=== PATIENT | male | born 1930 | race African-American/Black ===

== ENCOUNTER 2017-03-02 17:57 | Inpatient (IN) | payer OTHER, MEDICARE ==
[2017-03-02] VITALS (9 sets, daily range): BP systolic 81–140; BP diastolic 53–103
[~2017-03-02] VITALS: Ht 175.3 cm; Wt 75.0 kg
--- NOTE | ~2017-03-02 | 2DMMODE ---
[facility] [address] [place] [place] [address] 2 D/M-MODE ECHOCARDIOGRAM Name: DELIARAMYA Room #: 215-P ADM IN M.R.#: [id number] Admission: 03/02/17 Attend Phys: Danny Whitaker Discharge: Date of : [birth year] Date of Service: 03/03/17 1227 Report #: [id number] THIS REPORT FOR: //name// APPROVED REPORT Study performed: 03/03/2017 09:31:46 EXAM: Comprehensive 2D, Doppler, and color-flow Echocardiogram Patient Location: Bedside Room #: 215 Status: routine Other Information Study Quality: Good Indications COPD Atrial Fibrillation Dyspnea 2D Dimensions RVDd: 40.60 mm LVEF(%): 55.32 (>50%) IVSd: 16.97 (7-11mm) LVOT Diam: 24.14 (18-24mm) LVDd: 33.55 mm PWd: 15.78 (7-11mm) Ascending Ao: 33.85 (22-36mm) LVDs: 24.17 (25-40mm) Aortic Root: 32.81 mm IVC: 23.00 mm Willams's LVEF: 55.32 % Volumes Left Atrial Volume (Systole) Single Plane 4CH: 95.95 mL Single Plane 2CH: 71.44 mL LA ESV Index: 49.00 mL/m2 Aortic Valve AoV Peak Giuseppe.: 1.31 m/s AO Peak Gr.: 6.90 mmHg LVOT Max P.68 mmHg LVOT Max V: 0.82 m/s WALDO Vmax: 2.85 cm2 Mitral Valve MV Decel. Time: 192.02 ms MV E Max Giuseppe.: 0.93 m/s IVRT: 95.73 ms [facility] [address] [place] [address] 2 D/M-MODE ECHOCARDIOGRAM Name: RAMYA LIN Room #: 215-[facility] IN ..#: [id number] Admission: 03/02/17 Attend Phys: Danny Whitaker Discharge: Date of : [birth year] Date of Service: 03/03/17 1227 Report #: [id number] Pulmonary Valve PV Peak Giuseppe.: 0.82 m/s PV Peak Gr.: 2.73 mmHg Tricuspid Valve TR Peak Giuseppe.: 2.98 m/s RAP Estimate: 10.00 mmHg TR Peak Gr.: 35.73 mmHg PA Pressure: 46.00 mmHg Left Ventricle The left ventricle is normal size. There is normal LV segmental wall motion. Moderate concentric left ventricular hypertrophy. The left ventricular systolic function is normal. The left ventricular ejection fraction is within the normal range. LVEF is 50-55%. This study is not technically sufficient to allow evaluation of the LV diastolic function due to atrial fibrillation. Right Ventricle Right ventricle is at the upper limits of normal. The right ventricular systolic function is normal. Atria Left atrium is dilated. Right atrium is dilated. Aortic Valve Aortic valve is calcified. No aortic regurgitation is present. There is no aortic valvular stenosis. Mitral Valve The mitral valve is normal in structure. Mild mitral regurgitation. No evidence of mitral valve stenosis. Tricuspid Valve The tricuspid valve is normal in structure. There is mild tricuspid regurgitation. The right atrial pressure is estimated at 10 mmHg. There is moderate pulmonary hypertension. Pulmonic Valve The pulmonary valve is normal in structure. Great Vessels The aortic root is normal in size. IVC is dilated and collapses <50% with inspiration. Pericardium There is no pericardial effusion. [facility] [address] [place] [address] 2 D/M-MODE ECHOCARDIOGRAM Name: RAMYA LIN Room #: 215-P [facility] IN .R.#: [id number] Admission: 03/02/17 Attend Phys: Danny Whitaker Discharge: Date of : [birth year] Date of Service: 03/03/17 1227 Report #: [id number] <Conclusion> The left ventricular systolic function is normal. LVEF is 50-55%. Normal LV segmental wall motion. Left atrium is dilated. Aortic valve is calcified. No aortic regurgitation or stenosis The mitral valve is normal in structure. Mild mitral regurgitation. Pulmonary artery pressure of 40mmHg There is no pericardial effusion. <ELECTRONICALLY SIGNED> By: Thien Adams MD, [facility] 03/03/17 1227 1227 122 Thien Adams MD, [facility] /INF
--- NOTE | ~2017-03-02 | EKG ---
[address] [place] [address] ELECTROCARDIOGRAM REPORT Name: RAMYA LIN Room #: 215-P ADM IN M.R.#: [id number] Admission: 03/02/17 Attend Phys: Daryl Williamson Discharge: Date of : [birth year] Report #: [id number] THIS REPORT FOR: //name// 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 03/03/17 0926 1804 1804 Thien Adams MD, [facility] /EPI
[2017-03-02 18:30] LABS: HEMATOCRIT 42.4 % (42.0-52.0); HEMOGLOBIN 14.1 gm/dL (14.0-18.0); MCH 28.4 pg (26.0-34.0); MCHC 33.2 g/dL (28.0-37.0); MCV 85.6 fL (80.0-100.0); RBC 4.95 mil/uL (4.50-6.00); RDW 16.3 % (10.5-14.5); WBC 6.5 thou/uL (4.0-11.0)
[2017-03-02 18:40] LABS: ANION GAP 8 mmol/L (7-16); BUN 13 mg/dL (7-18); CALCIUM 9.4 mg/dL (8.5-10.1); CHLORIDE 100 mmol/L (98-107); CO2 29 mmol/L (21-32); CREATININE 0.9 mg/dL (0.7-1.3); GLUCOSE 123 mg/dL (74-106); POTASSIUM 3.6 mmol/L (3.5-5.1); SODIUM 137 mmol/L (136-145)
[2017-03-02 18:46] LABS: ALBUMIN 3.7 g/dL (3.4-5.0); ALKALINE PHOSPHATASE 79 U/L (46-116); SGOT 31 U/L (15-37); SGPT 17 U/L (30-65); TOTAL BILIRUBIN 0.5 mg/dL (<0.1-1.0); TOTAL PROTEIN 9.9 g/dL (6.4-8.2); TROPONIN-I < 0.04 ng/mL (<0.04-0.07)
[2017-03-02 19:05] LABS: NT-PRO BRAIN NAT PEPTIDE 325 pg/mL (<300)
[2017-03-02] MEDS ORDERED: LISINOPRIL10 MG (19:36)
[2017-03-02] MEDS ORDERED: PLAVIX 75 MG TA75 M1 PO (19:37)
[2017-03-02] MEDS ORDERED: ASPIRIN325 PO (19:37)
[2017-03-02] MEDS ORDERED: LIPITOR10 MG PO (19:38)
[2017-03-02] MEDS ORDERED: METOPROLOL (19:39)
[2017-03-02] MEDS ORDERED: COZAAR 25 MG TA25 M1 PO (20:54)
[2017-03-02] MEDS ORDERED: TOPROL XL25 MG PO (22:41)
[2017-03-02] MEDS ORDERED: AMLODIPINE BESY10 MG PO (22:41)
[2017-03-03 03:35] VITALS: BP 102/72
[2017-03-03 08:48] VITALS: BP 123/84
[2017-03-03 12:10] VITALS: BP 119/88
[2017-03-03] MEDS ORDERED: ACCUNEB SO1.25 MG/1 INH (12:15)
[2017-03-03 17:26] VITALS: BP 145/78
[2017-03-03 17:31] VITALS: BP 146/89
[2017-03-03 20:37] VITALS: BP 148/86
[2017-03-04 09:16] VITALS: BP 97/70
[2017-03-04] MEDS ORDERED: ADULT LOW DOSE81 MG PO (09:49)
[2017-03-04] MEDS ORDERED: PACERONE 200 M200 M1 PO (09:50)
[2017-03-04 13:12] VITALS: BP 105/65
[2017-03-04 13:37] VITALS: BP 105/65
== END 2017-03-04 15:28 | disposition home or self-care (01) | DRG 310 ==
LOC: ER 17:57 → EDBD 19:42 → 2N 19:42 → EROBS 19:42 → 2N 20:33
PROVIDERS: Emergency Medicine
DX: I48.0 Paroxysmal atrial fibrillation (principal); J44.9 Chronic obstructive pulmonary disease, unspecified; G62.9 Polyneuropathy, unspecified; I10 Essential (primary) hypertension; I65.29 Occlusion and stenosis of unspecified carotid artery; J84.10 Pulmonary fibrosis, unspecified; F17.210 Nicotine dependence, cigarettes, uncomplicated; I25.10 Atherosclerotic heart disease of native coronary artery without angina pectoris; Z79.899 Other long term (current) drug therapy; Z79.82 Long term (current) use of aspirin; Z87.442 Personal history of urinary calculi; Z85.51 Personal history of malignant neoplasm of bladder; Z98.62 Peripheral vascular angioplasty status; Z92.3 Personal history of irradiation
CPT/HCPCS: 10081

== ENCOUNTER → 2018-01-06 | Outpatient (CLI) | payer OTHER, MEDICARE ==
[~2018-01-06] MED LIST: ACCUNEB SO1.25 MG/1 INH; ADULT LOW DOSE81 MG PO; AMLODIPINE BESY10 MG; AMLODIPINE BESY10 MG PO; ASPIRIN325 PO; COZAAR 25 MG TA25 M1; COZAAR 25 MG TA25 M1 PO; LIPITOR10 MG PO; LISINOPRIL10 MG; METOPROLOL; PACERONE 200 M200 M1 PO; PLAVIX 75 MG TA75 M1; PLAVIX 75 MG TA75 M1 PO; TOPROL XL25 MG; TOPROL XL25 MG PO
== END ==
LOC: HYPER 11:39
DX: N30.41 Irradiation cystitis with hematuria (principal); I10 Essential (primary) hypertension; J44.9 Chronic obstructive pulmonary disease, unspecified; R06.02 Shortness of breath; G62.9 Polyneuropathy, unspecified; I48.91 Unspecified atrial fibrillation; Z85.51 Personal history of malignant neoplasm of bladder

== ENCOUNTER → 2018-01-06 | Outpatient (CLI) | payer OTHER, MEDICARE ==
[~2018-01-06] VITALS: Ht 175.3 cm; Wt 77.1 kg
[2018-01-06 10:13] VITALS: BP 128/78
[2018-01-06 12:39] LABS: ABSOLUTE NEUTROPHILS 6.8 thou/uL (1.4-8.2); BASOPHILS 0.8 % (0.0-2.0); EOSINOPHILS 0.8 % (0.0-3.0); HEMATOCRIT 34.9 % (42.0-52.0); HEMOGLOBIN 11.1 gm/dL (14.0-18.0); LYMPHOCYTES 12.1 % (24.0-44.0); MCH 25.4 pg (26.0-34.0); MCHC 31.7 g/dL (28.0-37.0); MCV 80.1 fL (80.0-100.0); MONOCYTES 5.5 % (1.0-8.0); PLATELET COUNT 308 thou/uL (150-400); POLYS 80.8 % (36.0-66.0); RBC 4.36 mil/uL (4.50-6.00); RDW 17.9 % (10.5-14.5); WBC 8.4 thou/uL (4.0-11.0)
[2018-01-06 12:55] LABS: ALBUMIN 3.6 g/dL (3.4-5.0); CALCIUM 9.2 mg/dL (8.5-10.1); CREATININE 0.7 mg/dL (0.7-1.3); POTASSIUM 3.6 mmol/L (3.5-5.1); TOTAL BILIRUBIN 0.7 mg/dL (<0.1-1.0); TOTAL PROTEIN 8.9 g/dL (6.4-8.2)
[2018-01-06 12:58] LABS: URINE BILIRUBIN NEGATIVE (Negative); URINE BLOOD 2+ (Negative); URINE CLARITY CLOUDY; URINE COLOR YELLOW; URINE GLUCOSE-RANDOM* NEGATIVE (Negative); URINE KETONES NEGATIVE (Negative); URINE PROTEIN (DIPSTICK) 1+ (Negative)
[2018-01-06 12:59] LABS: URINE LEUKOCYTES-REFLEX 2+ (Negative); URINE NITRITE-REFLEX POSITIVE (Negative)
[2018-01-06 13:21] LABS: TSH 1.651 uIU/mL (0.358-3.740)
[2018-01-06 13:21] LABS: BACTERIA >30 Many /HPF (None Seen); SQUAMOUS 0-3 Few /LPF (0-3)
[2018-01-06 13:22] LABS: CASTS None Seen /LPF (None Seen); URINE WBC >25 Many /HPF (0-5)
[2018-01-06 13:23] LABS: AMORPHOUS PHOSPHATES Moderate /LPF (None Seen)
[2018-01-06 13:25] LABS: BACTERIA-REFLEX >30 Many /HPF (None Seen); URINE WBC-REFLEX >25 Many /HPF (0-5)
== END ==
LOC: SEN 09:08
PROVIDERS: Internal Medicine Geriatric Medicine
DX: J44.9 Chronic obstructive pulmonary disease, unspecified (principal); R06.00 Dyspnea, unspecified; I48.91 Unspecified atrial fibrillation; I10 Essential (primary) hypertension

== ENCOUNTER 2018-01-23 11:45 | Inpatient (IN) | payer OTHER, MEDICARE ==
[~2018-01-23] VITALS: Ht 175.3 cm; Wt 69.4 kg
--- NOTE | ~2018-01-23 | EKG ---
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
--- NOTE | ~2018-01-23 | HC ---
[facility] [place] [address] CONSULTATION Name: RAMYA LIN Room #: 350-P ADM IN M.R.#: [id number] Admission: 01/23/18 Attend Phys: Patrice Abdul MD Discharge: Date of : [birth year] Report #: [id number] THIS REPORT FOR: //name// CC: Danny Owusu TYPE OF REPORT: Pulmonary consultation. PRIMARY CARE PHYSICIAN: Kunal Leon D.O. REFERRAL PHYSICIAN: Patrice Abdul M.D. REASON FOR REFERRAL: Progressive hypoxia in this patient with pulmonary fibrosis. HISTORY OF PRESENT ILLNESS: The patient is an 87-year-old -[place] male who presents to the Emergency Room with progressive hypoxia. He also notes increasing cough productive of purulent sputum, urinary frequency and dysuria. The patient has known pulmonary fibrosis. He has been followed by Dr. Humphreys at [facility]. 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 The patient has noted that his respiration symptoms have been ongoing for the past several years. He thinks it is more than 3-5 years. Symptoms has progressed where it is now difficult for him to walk more than 10 feet. He has never had a significant respiratory impairment, requiring hospitalization and respiratory failure until this hospitalization. Otherwise, denies any febrile illness, night sweats or chills or chest pain. He was also recently seen by Dr. Harrisno Looney. He was prescribed morphine, which he has not taken. Hospice was mentioned but the patient is not open to this at this time. 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 PAST SURGICAL HISTORY: As mentioned above. [facility] [address] [place] [address] CONSULTATION Name: RAMYA LIN Room #: 350-[facility] IN [facility].#: [id number] Admission: 01/23/18 Attend Phys: Patrice Abdul MD Discharge: Date of : 10/[birth year] Report #: [id number] ALLERGIES: None to medications. CURRENT MEDICATIONS: Include amiodarone and please note that this was recently discontinued, albuterol, Protonix, Flomax, aspirin, Cozaar, Plavix, amlodipine and metoprolol. FAMILY HISTORY: Noncontributory. SOCIAL HISTORY: The patient has smoked in the past but quit many years ago. He denies any alcohol use. He has a daughter who lives in town. REVIEW OF SYSTEMS: As mentioned above, otherwise notable for increasing dyspnea on exertion with impaired mobility. Otherwise, 10-point system review negative. PHYSICAL EXAMINATION: GENERAL: He is awake and alert, in moderate distress. Appears tachypneic. VITAL SIGNS: Temperature is 98 degrees Fahrenheit, pulse is 80, respiratory rate is 20, blood pressure 127/81 mmHg and saturation 96%. HEENT: Unremarkable. NECK: Supple. CHEST: Breath sounds are moderate bilaterally with bilateral crackles. No wheezes. CARDIOVASCULAR: Normal S1 and S2. There are no murmurs or gallop. There is no JVD. There is no carotid bruit. Pulses are 2+/4+ bilaterally. ABDOMEN: Soft and nontender. No organomegaly or masses felt. GENITOURINARY: Deferred. RECTAL: Deferred. EXTREMITIES: There is no cyanosis or clubbing but remarkable for 1-2+ bilateral pretibial edema. RADIOLOGICAL DATA: Chest x-ray shows extensive interstitial infiltrates along with honeycombing involving bilateral lower lobes. LABORATORY DATA: BNP is 1100. Electrolytes are normal. Creatinine is normal. WBC is 6400, hemoglobin is 7.9 and platelets are normal. No evidence of bandemia. Arterial blood gas revealed pH 7.42, pCO2 of 39 and pO2 337 on FiO2 100%. IMPRESSION: 1. Lfjgj-ce-zkcrxrn hypoxic respiratory failure in this 87-year-old -[place]ian male. He has known pulmonary fibrosis. He has had a productive cough. 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 2. Pulmonary fibrosis. Presumed idiopathic pulmonary fibrosis or usual [address] [address] CONSULTATION Name: RAMYA LIN Room #: 350-P ADM IN M.R.#: [id number] Admission: 01/23/18 Attend Phys: Patrice Abdul MD Discharge: Date of : 10[birth year] Report #: [id number] interstitial pneumonitis. Being followed by Dr. Humphreys at [facility]. He has not been placed on any treatment as of yet. The patient is contemplating possible treatment. 3. 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 Echocardiogram from February of 2017 showed pulmonary artery pressure measuring 40 mmHg, normal left ventricular function, no obvious valvular abnormalities. EKG on this admission revealed atrial fibrillation with left bundle-branch block. 4. Atrial fibrillation, the patient had been on amiodarone, which appears to be discontinued. This amiodarone should probably on hold given the patient's underlying interstitial lung disease. 5. Coronary artery disease status post prior stent placement. 6. History of chronic obstructive pulmonary disease with presumed exacerbation. 7. Hypertension. 8. Neuropathy. 9. Generalized deconditioned state and weakness. RECOMMENDATIONS: Agree with current treatment including corticosteroids, bronchodilators. Agree with broad-spectrum antibiotics. The usual community-acquired infection should be considered. DVT and GI prophylaxis will be addressed. Also discussed medical directive. The patient at this time desired full code blue, but he will discuss with his family given that he has pulmonary fibrosis appears to be advanced and extensive and overall outlook appears to be poor. Thank you for the consultation. <ELECTRONICALLY SIGNED> By: Conrado Mcnamara MD 01/24/18 1737 1749 2241 Conrado Mcnamara MD /nt
[2018-01-23 11:46] VITALS: BP 136/79
[2018-01-23 12:38] LABS: ABSOLUTE NEUTROPHILS 4.4 thou/uL (1.4-8.2); BASOPHILS 0.7 % (0.0-2.0); EOSINOPHILS 2.5 % (0.0-3.0); HEMATOCRIT 35.4 % (42.0-52.0); HEMOGLOBIN 10.9 gm/dL (14.0-18.0); LYMPHOCYTES 21.7 % (24.0-44.0); MCH 24.6 pg (26.0-34.0); MCHC 30.9 g/dL (28.0-37.0); MCV 79.6 fL (80.0-100.0); MONOCYTES 5.9 % (1.0-8.0); PLATELET COUNT 269 thou/uL (150-400); POLYS 69.2 % (36.0-66.0); RBC 4.44 mil/uL (4.50-6.00); RDW 19.1 % (10.5-14.5); WBC 6.4 thou/uL (4.0-11.0)
[2018-01-23 12:42] LABS: BE(vivo) 0.7 mmol/L (-2 to +3); PO2 337.7 mmHg (80.0-100.0); pH 7.425 (7.360-7.450); sO2 99.8 % (92.0-98.0)
[2018-01-23 12:47] LABS: ANION GAP 8 mmol/L (7-16); BUN 11 mg/dL (7-18); CALCIUM 9.5 mg/dL (8.5-10.1); CHLORIDE 102 mmol/L (98-107); CO2 26 mmol/L (21-32); CREATININE 0.7 mg/dL (0.7-1.3); GLUCOSE 97 mg/dL (74-106); SODIUM 136 mmol/L (136-145)
[2018-01-23 12:56] LABS: ALBUMIN 3.3 g/dL (3.4-5.0); SGOT 29 U/L (15-37); SGPT 27 U/L (30-65); TOTAL BILIRUBIN 0.6 mg/dL (<0.1-1.0); TOTAL PROTEIN 8.1 g/dL (6.4-8.2); TROPONIN-I < 0.04 ng/mL (<0.06)
[2018-01-23] MEDS ORDERED: PROTONIX 20 MG20 M1 PO (13:58)
[2018-01-23] MEDS ORDERED: FLOMAX0.4 MG PO (13:59)
[2018-01-23] MEDS ORDERED: ASPIR-TRIN325 MG PO (14:00)
[2018-01-23] MEDS ORDERED: ASPIR 8181 MG PO (14:00)
[2018-01-23 14:44] VITALS: BP 127/81
[2018-01-23 14:52] VITALS: BP 127/81
[2018-01-23 17:37] VITALS: BP 111/70
[2018-01-23 19:25] VITALS: BP 103/57
[2018-01-24 00:03] VITALS: BP 122/92
[2018-01-24 01:42] LABS: URINE BILIRUBIN NEGATIVE (Negative); URINE BLOOD 3+ (Negative); URINE CLARITY SL CLOUDY; URINE COLOR YELLOW; URINE GLUCOSE-RANDOM* NEGATIVE (Negative); URINE KETONES TRACE (Negative); URINE PROTEIN (DIPSTICK) 1+ (Negative); URINE SPECIFIC GRAVITY >= 1.030 (1.005-1.035)
[2018-01-24 01:44] LABS: URINE LEUKOCYTES-REFLEX 2+ (Negative); URINE NITRITE-REFLEX POSITIVE (Negative)
[2018-01-24 01:54] LABS: AMORPHOUS URATES Few /LPF (None Seen); CASTS None Seen /LPF (None Seen); CRYSTALS None Seen /LPF (None Seen); MUCUS 0-3 Light strn/LPF (None Seen); SQUAMOUS 0-3 Few /LPF (0-3); URINE RBC >20 Many /HPF (0-2)
[2018-01-24 04:47] VITALS: BP 121/77
[2018-01-24 06:10] LABS: HEMOGLOBIN 10.7 gm/dL (14.0-18.0); MCH 24.7 pg (26.0-34.0); MCHC 31.5 g/dL (28.0-37.0); MCV 78.5 fL (80.0-100.0); RBC 4.34 mil/uL (4.50-6.00); RDW 18.2 % (10.5-14.5); WBC 5.3 thou/uL (4.0-11.0)
[2018-01-24 06:15] LABS: CALCIUM 9.1 mg/dL (8.5-10.1); CREATININE 0.8 mg/dL (0.7-1.3); POTASSIUM 4.4 mmol/L (3.5-5.1)
[2018-01-24 07:46] VITALS: BP 124/80
[2018-01-24 12:02] VITALS: BP 109/72
[2018-01-24 17:03] VITALS: BP 113/70
[2018-01-24 19:25] VITALS: BP 92/66
[2018-01-25 03:45] VITALS: BP 100/82
[2018-01-25 05:29] LABS: ABSOLUTE NEUTROPHILS 4.6 thou/uL (1.4-8.2); BASOPHILS 0.1 % (0.0-2.0); HEMATOCRIT 32.6 % (42.0-52.0); HEMOGLOBIN 10.1 gm/dL (14.0-18.0); LYMPHOCYTES 14.6 % (24.0-44.0); MCH 24.5 pg (26.0-34.0); MONOCYTES 4.2 % (1.0-8.0); PLATELET COUNT 276 thou/uL (150-400); POLYS 81.1 % (36.0-66.0); RBC 4.13 mil/uL (4.50-6.00); RDW 18.3 % (10.5-14.5); WBC 5.7 thou/uL (4.0-11.0)
[2018-01-25 05:41] LABS: CREATININE 0.9 mg/dL (0.7-1.3); POTASSIUM 4.7 mmol/L (3.5-5.1); TOTAL BILIRUBIN 0.3 mg/dL (<0.1-1.0); TOTAL PROTEIN 7.8 g/dL (6.4-8.2)
[2018-01-25 07:08] VITALS: BP 105/73
[2018-01-25 11:03] VITALS: BP 103/64
[2018-01-25 15:14] VITALS: BP 87/57
[2018-01-25 19:05] VITALS: BP 91/57
[2018-01-26 03:25] VITALS: BP 96/65
[2018-01-26 07:59] VITALS: BP 115/84
[2018-01-26] MEDS ORDERED: SPIRIVA INH (14:02)
[2018-01-26] MEDS ORDERED: PREDNISONE 10 M10 MG PO (14:03)
[2018-01-26] MEDS ORDERED: LEVAQUIN 750 M750 MG PO (14:04)
== END 2018-01-26 16:24 | DRG 196 ==
LOC: ER 11:45 → EROBS 14:21 → 3W 14:21
PROVIDERS: Emergency Medicine; Internal Medicine Geriatric Medicine; Internal Medicine Pulmonary Disease; Nurse Practitioner Family
DX: J84.10 Pulmonary fibrosis, unspecified (principal); J96.21 Acute and chronic respiratory failure with hypoxia; N39.0 Urinary tract infection, site not specified; J44.9 Chronic obstructive pulmonary disease, unspecified; G62.9 Polyneuropathy, unspecified; I10 Essential (primary) hypertension; I48.91 Unspecified atrial fibrillation; Z51.5 Encounter for palliative care; I25.10 Atherosclerotic heart disease of native coronary artery without angina pectoris; I73.9 Peripheral vascular disease, unspecified; Z92.3 Personal history of irradiation; Z87.891 Personal history of nicotine dependence; Z99.81 Dependence on supplemental oxygen; Z85.51 Personal history of malignant neoplasm of bladder; Z85.118 Personal history of other malignant neoplasm of bronchus and lung; Z87.442 Personal history of urinary calculi; Z95.5 Presence of coronary angioplasty implant and graft; Z79.82 Long term (current) use of aspirin; Z79.899 Other long term (current) drug therapy
CPT/HCPCS: 10779

== ENCOUNTER 2018-02-21 05:43 | Inpatient (IN) | payer OTHER, MEDICARE ==
[~2018-02-21] VITALS: Ht 175.3 cm; Wt 70.8 kg
--- NOTE | ~2018-02-21 | 2DMMODE ---
[facility] [place] [address] 2 D/M-MODE ECHOCARDIOGRAM Name: RAMYA LIN Room #: 170-10 ADM IN ..#: [id number] Admission: 02/21/18 Attend Phys: Harrison Looney, Discharge: Date of : [birth year] Date of Service: 02/21/18 1016 Report #: [id number] THIS REPORT FOR: //name// APPROVED REPORT Study performed: 02/21/2018 08:38:44 EXAM: Comprehensive 2D, Doppler, and color-flow Echocardiogram Patient Location: Bedside Room #: ER Status: on-call BSA: 1.83 HR: 74 bpm BP: 117/76 mmHg Rhythm: Atrial Fibrillation Other Information Study Quality: Good/Patient sitting up and on BiPap Indications Short of breath. Hx: CAD, stents, Afib, COPD, HTN. 2D Dimensions RVDd: 43.99 mm LVEF(%): 41.45 (>50%) IVSd: 15.22 (7-11mm) LVOT Diam: 23.06 (18-24mm) LVDd: 43.39 mm PWd: 12.15 (7-11mm) Ascending Ao: 32.76 (22-36mm) LVDs: 34.66 (25-40mm) Aortic Root: 33.53 mm Willams's LVEF: 41.45 % Volumes Left Atrial Volume (Systole) Single Plane 4CH: 120.36 mL Single Plane 2CH: 115.90 mL LA ESV Index: 70.00 mL/m2 Aortic Valve AoV Peak Giuseppe.: 1.17 m/s AO Peak Gr.: 5.59 mmHg LVOT Max P.07 mmHg LVOT Max V: 0.71 m/s WALDO Vmax: 2.53 cm2 Mitral Valve MV Decel. Time: 219.59 [place] [address] 2 D/M-MODE ECHOCARDIOGRAM Name: RAMYA LIN Room #: 170-10 ADM IN M.R.#: [id number] Admission: 02/21/18 Attend Phys: Harrison Looney, Discharge: Date of : [birth year] Date of Service: 02/21/18 1016 Report #: [id number] E Max Giuseppe.: 0.97 m/s Pulmonary Valve PV Peak Giuseppe.: 0.52 m/s PV Peak Gr.: 1.07 mmHg Tricuspid Valve TR Peak Giuseppe.: 3.77 m/s RAP Estimate: 10.00 mmHg TR Peak Gr.: 57.28 mmHg PA Pressure: 67.00 mmHg Left Ventricle The left ventricle is normal size. Mild concentric left ventricular hypertrophy. Left ventricular systolic function is mild to moderately decreased.globally LVEF is 35%. This study is not technically sufficient to allow evaluation of the LV diastolic function due to atrial fibrillation. Right Ventricle Right ventricle is mildly dilated. Right ventricle is moderately hypokinetic. Atria Left atrium is severely dilated. Right atrium is moderately dilated. Aortic Valve Aortic valve leaflets are mildly thickened and calcified. Trace aortic regurgitation. There is no aortic valvular stenosis. Mitral Valve Mitral valve leaflets are mildly thickened and calcified. Mild to moderate mitral regurgitation. No evidence of mitral valve stenosis. Tricuspid Valve The tricuspid valve is normal in structure. Moderate tricuspid regurgitation. Estimated PAP is 65-70mmHg. Pulmonic Valve The pulmonary valve is normal in structure. Trace pulmonic regurgitation. Great Vessels The aortic root is normal in size. The ascending aorta is normal in size. IVC is dilated and collapses <50% with inspiration. [facility] [address] [place] [address] 2 D/M-MODE ECHOCARDIOGRAM Name: RAMYA LIN Room #: 170-10 [facility] IN M.R.#: [id number] Admission: 02/21/18 Attend Phys: Harrison Looney, Discharge: Date of : 10/[birth year] Date of Service: 02/21/18 1016 Report #: [id number] Pericardium There is no pericardial effusion. <Conclusion> The left ventricle is normal size. Mild concentric left ventricular hypertrophy. Left ventricular systolic function is mild to moderately decreased.globally LVEF is 35%. This study is not technically sufficient to allow evaluation of the LV diastolic function due to atrial fibrillation. Right ventricle is mildly dilated. Right ventricle is moderately hypokinetic. Left atrium is severely dilated. Right atrium is moderately dilated. Aortic valve leaflets are mildly thickened and calcified. There is no aortic valvular stenosis. Mild to moderate mitral regurgitation. Moderate tricuspid regurgitation. Estimated PAP is 65-70mmHg. The aortic root is normal in size. There is no pericardial effusion. <ELECTRONICALLY SIGNED> By: Wally Howard MD, FACC 02/21/18 1016 1016 1016 Wally Howard MD, FACC /INF
--- NOTE | ~2018-02-21 | HC ---
[facility] [place] [address] CONSULTATION Name: RAMYA LIN Room #: 359-P ADM IN M.R.#: [id number] Admission: 02/21/18 Attend Phys: Harrison Looney DO Discharge: Date of : [birth year] Report #: [id number] THIS REPORT FOR: //name// CC: Danny Looney CARDIOLOGY CONSULTATION REASON FOR CONSULTATION: Atrial fibrillation with RVR and congestive heart failure. HISTORY OF PRESENT ILLNESS: The patient is an 87-year-old male with history of pulmonary fibrosis; coronary artery disease, status post multiple prior stents and a history of paroxysmal atrial fibrillation. He was last seen here back in 02/[address] Howard, at which time, he had AFib with rapid ventricular response which responded to some amiodarone therapy. He converted on his own. At that time, an echo showed an EF of 50% to 55%. He was recently here in the hospital in January with worsening COPD and pulmonary fibrosis as well as pneumonia and went to a rehab facility and has been home for about a week, but presented with worsening shortness of breath and was admitted. His initial EKG showed atrial fibrillation with rapid ventricular response. He denies any chest pain. He has had worsening exertional dyspnea. He denies PND or orthopnea. He denies presyncope or syncope. REVIEW OF SYSTEMS: GENERAL: No fevers or chills. HEENT: No blurred vision. CARDIOVASCULAR: As above. PULMONARY: He has been coughing and feels short of breath. No hemoptysis. GASTROINTESTINAL: No nausea or vomiting. GENITOURINARY: No dysuria. MUSCULOSKELETAL: No myalgias or arthralgias. ENDOCRINE: No heat or cold intolerance. NEUROLOGIC: No focal weakness. PAST MEDICAL HISTORY: As documented above and also includes pulmonary fibrosis and the left carotid endarterectomy. SOCIAL HISTORY: He does not smoke. FAMILY HISTORY: Noncontributory. ALLERGIES: No known drug allergies. MEDICATIONS: Have been reviewed and include vancomycin, Zosyn, Lovenox, prednisone, albuterol, tamsulosin, pantoprazole, metoprolol 25 b.i.d., losartan 25 a day, Plavix 75 and aspirin [address] [address] CONSULTATION Name: RAMYA LIN Room #: 359-P [facility] IN .R.#: [id number] Admission: 02/21/18 Attend Phys: Harrison Looney DO Discharge: Date of : [birth year] Report #: [id number] PHYSICAL EXAMINATION: VITAL SIGNS: Temperature is 36.4, pulse 80s to 120s, respiration 20, blood pressure 139/73 and sats 97%. GENERAL: He is in no acute distress. HEENT: Oropharynx is clear. NECK: Supple, with no thyromegaly. HEART: Irregularly irregular, tachycardic. He has mildly elevated JVD. LUNGS: Reveal Velcro crackles throughout. ABDOMEN: Soft, nontender. EXTREMITIES: There is some trace lower extremity edema. NEUROLOGIC: Cranial nerves 2-12 are intact. LABORATORY DATA: White count 4.9, hemoglobin 10 and platelets 266,000. Coags: INR is 1.2. D-dimer was slightly elevated. Blood gas, pH of 7.3, pCO2 of 42 and pO2 was 457. Chemistries: Sodium is 140, potassium 4.3, BUN 22, creatinine 0.8 and glucose 136. Troponin was normal. ProBNP is slightly elevated at 1696. EKG shows atrial fibrillation with a rapid ventricular response and no ischemic changes and a left bundle branch block. CT chest, no PE. Echocardiogram yesterday showed his EF is down to 35%. ASSESSMENT AND PLAN: 1. Atrial fibrillation/atrial flutter with rapid ventricular response. 2. Acute congestive heart failure. 3. Left ventricular systolic dysfunction, EF 35%. 4. Chronic obstructive pulmonary disease exacerbation. 5. Coronary artery disease. 6. Hypertension. 7. Peripheral vascular disease. SUMMARY: The patient is an 87-year-old with history of pulmonary fibrosis, presents with shortness of breath and is found to be in atrial fibrillation/atrial flutter with rapid ventricular response. We will continue his current dose of beta blockers, but I do not want to increase these much further as they can worsen his pulmonary function. We will initiate some diltiazem therapy. With regards to his decreased ejection fraction, this is likely related to his atrial fibrillation with rapid ventricular response. We will try to optimize his rate control. I do not think a stress test is warranted at this time. In terms of his cardiomyopathy, he is already on a beta nhung and an Hesham. We will make no changes. I do not think that he is particularly volume overloaded and therefore, I will not proceed with IV diuresis at this time. We will continue to follow. <ELECTRONICALLY SIGNED> By: Ramon Smith MD 02/23/18 1327 1347 2253 Ramon Smith MD /nt
--- NOTE | ~2018-02-21 | EKG ---
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
[~2018-02-21 05:43] MED LIST changes: +ASPIR 8181 MG PO; +ASPIR-TRIN325 MG PO; +FLOMAX0.4 MG PO; +LEVAQUIN 750 M750 MG PO; +PREDNISONE 10 M10 MG PO; +PROTONIX 20 MG20 M1 PO; +SPIRIVA INH
[2018-02-21 06:10] LABS: BE(vivo) 0.3 mmol/L (-2 to +3); HCO3 25.3 mmol/L (22.0-26.0); PCO2 42.3 mmHg (35.0-45.0); PO2 457.4 mmHg (80.0-100.0); pH 7.395 (7.360-7.450); sO2 99.9 % (92.0-98.0)
[2018-02-21 06:15] LABS: RDW 18.5 % (10.5-14.5); WBC 6.5 thou/uL (4.0-11.0)
[2018-02-21 06:17] LABS: HEMATOCRIT 33.3 % (42.0-52.0); HEMOGLOBIN 10.6 gm/dL (14.0-18.0); MCH 24.1 pg (26.0-34.0); MCHC 31.9 g/dL (28.0-37.0); MCV 75.4 fL (80.0-100.0); PLATELET COUNT 275 thou/uL (150-400); RBC 4.42 mil/uL (4.50-6.00)
[2018-02-21 06:23] LABS: ANION GAP 8 mmol/L (7-16); BUN 15 mg/dL (7-18); CALCIUM 8.5 mg/dL (8.5-10.1); CHLORIDE 105 mmol/L (98-107); CO2 28 mmol/L (21-32); CREATININE 0.8 mg/dL (0.7-1.3); GLUCOSE 130 mg/dL (74-106); POTASSIUM 3.6 mmol/L (3.5-5.1); SODIUM 141 mmol/L (136-145)
[2018-02-21 06:27] LABS: INR 1.2
[2018-02-21 06:32] LABS: ALBUMIN 3.3 g/dL (3.4-5.0); MAGNESIUM 1.7 mg/dL (1.8-2.4); SGOT 36 U/L (15-37); SGPT 52 U/L (30-65); TOTAL BILIRUBIN 0.7 mg/dL (<0.1-1.0); TOTAL PROTEIN 7.6 g/dL (6.4-8.2); TROPONIN-I <0.06 ng/mL (<0.06)
[2018-02-21 08:18] LABS: ABSOLUTE NEUTROPHILS 5.3 thou/uL (1.4-8.2)
[2018-02-21 08:19] LABS: ANISOCYTOSIS 1+
[2018-02-21 08:43] VITALS: BP 117/76
[2018-02-21 08:50] LABS: URINE BILIRUBIN NEGATIVE (Negative); URINE BLOOD 3+ (Negative); URINE CLARITY CLEAR; URINE COLOR YELLOW; URINE GLUCOSE-RANDOM* NEGATIVE (Negative); URINE KETONES NEGATIVE (Negative); URINE LEUKOCYTES-REFLEX NEGATIVE (Negative); URINE NITRITE-REFLEX NEGATIVE (Negative); URINE PROTEIN (DIPSTICK) NEGATIVE (Negative); URINE UROBILINOGEN 0.2 E.U./dl (0.2-1.0)
[2018-02-21 09:00] LABS: BACTERIA-REFLEX 1-9 Few /HPF (None Seen); CALCIUM OXALATE 0-3 Few /LPF (None Seen); CASTS None Seen /LPF (None Seen); SQUAMOUS 4-10 Moderate /LPF (0-3); URINE RBC 3-10 Few /HPF (0-2); URINE WBC-REFLEX None Seen /HPF (0-5)
[2018-02-21 14:10] VITALS: BP 118/57
[2018-02-21 16:30] VITALS: BP 92/60
[2018-02-21 19:40] VITALS: BP 97/71
[2018-02-22 04:05] VITALS: BP 108/72
[2018-02-22 07:20] LABS: RDW 18.5 % (10.5-14.5); WBC 4.9 thou/uL (4.0-11.0)
[2018-02-22 07:22] LABS: HEMATOCRIT 31.8 % (42.0-52.0); HEMOGLOBIN 10.2 gm/dL (14.0-18.0); MCH 23.9 pg (26.0-34.0); MCHC 32.1 g/dL (28.0-37.0); MCV 74.4 fL (80.0-100.0); PLATELET COUNT 266 thou/uL (150-400); RBC 4.28 mil/uL (4.50-6.00)
[2018-02-22 07:23] LABS: CALCIUM 8.7 mg/dL (8.5-10.1); CREATININE 0.8 mg/dL (0.7-1.3); POTASSIUM 4.3 mmol/L (3.5-5.1)
[2018-02-22 07:52] VITALS: BP 139/73
[2018-02-22 08:19] LABS: ABSOLUTE NEUTROPHILS 3.9 thou/uL (1.4-8.2); ANISOCYTOSIS 1+; MICROCYTES 2+; PLATELET ESTIMATE NORMAL
[2018-02-22 17:25] VITALS: BP 102/53
[2018-02-22 20:05] VITALS: BP 90/60
[2018-02-23 03:15] VITALS: BP 99/72
[2018-02-23 05:32] LABS: MCH 24.1 pg (26.0-34.0); WBC 5.5 thou/uL (4.0-11.0)
[2018-02-23 05:33] LABS: HEMATOCRIT 29.9 % (42.0-52.0); HEMOGLOBIN 9.7 gm/dL (14.0-18.0); MCHC 32.5 g/dL (28.0-37.0); MCV 74.2 fL (80.0-100.0); PLATELET COUNT 262 thou/uL (150-400); RBC 4.03 mil/uL (4.50-6.00)
[2018-02-23 05:43] LABS: ALBUMIN 2.9 g/dL (3.4-5.0); CALCIUM 8.4 mg/dL (8.5-10.1); CREATININE 0.9 mg/dL (0.7-1.3); POTASSIUM 4.5 mmol/L (3.5-5.1); TOTAL BILIRUBIN 0.4 mg/dL (<0.1-1.0); TOTAL PROTEIN 6.8 g/dL (6.4-8.2)
[2018-02-23 08:05] VITALS: BP 119/80
[2018-02-23 08:58] LABS: ABSOLUTE NEUTROPHILS 4.7 thou/uL (1.4-8.2); ANISOCYTOSIS 1+; MICROCYTES 1+; PLATELET ESTIMATE NORMAL; POLYCHROMASIA SLIGHT
[2018-02-23 11:09] VITALS: BP 108/67
[2018-02-23 16:46] VITALS: BP 90/57
[2018-02-23 19:30] VITALS: BP 93/61
[2018-02-24 03:20] VITALS: BP 121/74
[2018-02-24 05:44] LABS: HEMOGLOBIN 10.1 gm/dL (14.0-18.0); PLATELET COUNT 270 thou/uL (150-400); RDW 18.3 % (10.5-14.5)
[2018-02-24 05:47] LABS: HEMATOCRIT 31.5 % (42.0-52.0); WBC 5.9 thou/uL (4.0-11.0)
[2018-02-24 06:00] LABS: CALCIUM 8.1 mg/dL (8.5-10.1); CREATININE 0.9 mg/dL (0.7-1.3); POTASSIUM 3.7 mmol/L (3.5-5.1)
[2018-02-24 06:24] LABS: ABSOLUTE NEUTROPHILS 5.1 thou/uL (1.4-8.2); ANISOCYTOSIS 2+; HYPOCHROMASIA 1+; NUCLEATED RBCS 1 /100WBC; POLYCHROMASIA 1+
[2018-02-24 06:25] LABS: LARGE PLATELETS RARE; OVALOCYTES 1+; SCHISTOCYTES FEW
[2018-02-24 07:20] VITALS: BP 117/84
[2018-02-24 11:01] VITALS: BP 133/87
[2018-02-24 15:52] VITALS: BP 110/74
[2018-02-24 20:20] VITALS: BP 111/79
[2018-02-25 03:55] VITALS: BP 125/79
[2018-02-25 04:58] LABS: CALCIUM 8.4 mg/dL (8.5-10.1); CREATININE 0.8 mg/dL (0.7-1.3); MAGNESIUM 1.9 mg/dL (1.8-2.4); POTASSIUM 3.7 mmol/L (3.5-5.1)
[2018-02-25 07:40] VITALS: BP 123/84
[2018-02-25 11:40] VITALS: BP 112/79
[2018-02-25 14:35] VITALS: BP 117/76
[2018-02-25 20:00] VITALS: BP 114/74
[2018-02-26 04:10] VITALS: BP 129/77
[2018-02-26 07:18] VITALS: BP 127/91
[2018-02-26 10:13] LABS: CALCIUM 8.4 mg/dL (8.5-10.1); CREATININE 0.9 mg/dL (0.7-1.3); POTASSIUM 3.9 mmol/L (3.5-5.1)
[2018-02-26 11:24] VITALS: BP 116/72
[2018-02-26] MEDS ORDERED: PREDNISONE 10 M10 M1 PO (13:51)
[2018-02-26] MEDS ORDERED: LEVAQUIN 500 M500 M2 PO (13:51)
[2018-02-26] MEDS ORDERED: PLAVIX 75 MG TA75 M1 PO (13:51)
[2018-02-26] MEDS ORDERED: DILTIAZEM 24HR180 M1 PO (13:51)
[2018-02-26] MEDS ORDERED: SPIRONOLACTONE25 M1 PO (13:51)
[2018-02-26] MEDS ORDERED: TORSEMIDE20 MG PO (13:51)
[2018-02-26] MEDS ORDERED: ENOXAPARIN40 MG/0.1 SUBQ (13:51)
[2018-02-26] MEDS ORDERED: METOPROLOL SUCC50 MG PO (13:51)
== END 2018-02-26 18:30 | DRG 291 ==
LOC: ER 05:43 → 3W 07:19 → EROBS 07:19 → 3W 14:10
PROVIDERS: Emergency Medicine; Internal Medicine; Internal Medicine Geriatric Medicine; Nurse Practitioner Adult Health; Nurse Practitioner Family
DX: I11.0 Hypertensive heart disease with heart failure (principal); J96.21 Acute and chronic respiratory failure with hypoxia; N39.0 Urinary tract infection, site not specified; I48.92 Unspecified atrial flutter; J44.1 Chronic obstructive pulmonary disease with (acute) exacerbation; I50.21 Acute systolic (congestive) heart failure; I42.9 Cardiomyopathy, unspecified; G62.9 Polyneuropathy, unspecified; J84.10 Pulmonary fibrosis, unspecified; I25.10 Atherosclerotic heart disease of native coronary artery without angina pectoris; I73.9 Peripheral vascular disease, unspecified; I27.20 Pulmonary hypertension, unspecified; I65.29 Occlusion and stenosis of unspecified carotid artery; I48.0 Paroxysmal atrial fibrillation; Z95.5 Presence of coronary angioplasty implant and graft; Z87.442 Personal history of urinary calculi; Z85.51 Personal history of malignant neoplasm of bladder; Z87.891 Personal history of nicotine dependence; Z79.82 Long term (current) use of aspirin; Z79.899 Other long term (current) drug therapy
CPT/HCPCS: 10879